=== PATIENT | male | born 1990 | race Caucasian/White ===

== ENCOUNTER → 2023-09-06 15:47 | Outpatient (CLI) | payer OTHER, SELFPAY ==
--- NOTE | 2023-09-06 | DI.MRI.S_ITS ---
PROCEDURE: MR HEAD/BRAIN WO CON INDICATIONS: MIGRAINE TECHNIQUE: Noncontrast axial T1 spin echo, axial T2 fast spin echo, sagittal and axial FLAIR, coronal T2 fast spin echo, axial gradient echo, axial diffusion and ADC through the brain. COMPARISON: None. FINDINGS: Image quality: This examination is limited by involuntary motion artifact. CSF Spaces: Basal cisterns are patent. No extra-axial fluid collections. Ventricles are normal in size and shape. Brain: No intracranial masses or hemorrhage. Ly/white matter interface is normal. Brainstem appears normal. Diffusion-weighted images demonstrate no acute infarct. No chronic ischemic insults. Normal intravascular flow voids are present. The cerebellar tonsils demonstrate a normal shape and are not abnormally low lying. Skull and face: Calvarium has normal marrow signal. Orbits appear normal. Sinuses: Sinuses and mastoids are clear. IMPRESSION: Brain MRI within normal limits, without a cause of headache identified. To the limits of this noncontrast study, no findings masses or mass effect can be seen. Dictated by: Camilo Ochoa M.D. on 09/06/2023 at 17:16 Approved by: Camilo Ochoa M.D. on 09/06/2023 at 17:16
== END ==
PROVIDERS: Referring Provider Nurse Practitioner Family; Visit Provider Nurse Practitioner Family
DX: G43.909 Migraine, unspecified, not intractable, without status migrainosus (principal)
CPT/HCPCS: 70551